=== PATIENT | female | born 1945 | race Caucasian/White ===

== ENCOUNTER 2023-04-03 03:55 | Inpatient (IN) | payer MEDICARE ==
[~2023-04-03] VITALS: Ht 152.4 cm; Wt 59.0 kg
[2023-04-03] MEDS ORDERED: cefTRIAXone 1GM/50ML D5W 50 ML IV ONE ×2 (08:55→11:30)
[2023-04-03] MEDS ORDERED: POTASSIUM CHL 20MEQ/100ML 100 ML IV ONE ×3 (10:02→13:30)
[2023-04-03 10:30] VITALS: PULSE 83; RESP 15; O2SAT 96
[2023-04-03] MEDS ORDERED: DOCUSATE SOD 100 MG CAP PO PRN (12:00)
[2023-04-03] MEDS: SODIUM CHLORIDE 0.9% 1,000 ML IV SCH ×2 (13:07→22:01)
[2023-04-03 14:29] LABS: Alanine Aminotransferase < 9 U/L (7-40); Albumin 3.5 g/dL (3.2-4.8); Alkaline Phosphatase 80 U/L (46-116); Anion Gap 7 (5-15); Aspartate Aminotransferase 12 U/L (13-40); BUN/Creatinine Ratio 14.6 (10.0-20.0); Bilirubin, Total 1.1 mg/dL (0.2-1.0); Blood Urea Nitrogen 14 mg/dL (9-23); Calcium 9.3 mg/dL (8.5-10.1); Carbon Dioxide 29 mmol/L (20-30); Chloride 101 mmol/L (98-107); Glucose 95 mg/dL (74-106); Sodium 137 mmol/L (136-145); Total Protein 5.6 g/dL (5.7-8.2)
[2023-04-03 14:30] LABS: Potassium 2.6 mmol/L (3.5-5.1)
[2023-04-03 15:38] LABS: Basophils # (auto) 0 10 ^3/uL (0-0.2); Basophils % (auto) 0.3 % (0.0-2.0); Eosinophils # (auto) 0.2 10 ^3/uL (0-0.8); Eosinophils % (auto) 1.8 % (0.0-7.0); Hematocrit 31.8 % (36.0-46.0); Hemoglobin 10.7 g/dL (12.2-16.2); Lymphocytes # (auto) 1.3 10 ^3/uL (0.4-5.4); Lymphocytes % (auto) 10.4 % (10.0-50.0); Mean Corpuscular Hemoglobin 32.8 pg (28.0-32.0); Mean Corpuscular Hgb Conc. 33.8 g/dL (32.0-36.0); Mean Corpuscular Volume 97.1 fL (80.0-100.0); Monocytes # (auto) 0.5 10 ^3/uL (0-1.3); Monocytes % (auto) 4.2 % (0.0-12.0); Neutrophils # (auto) 10.7 10 ^3/uL (1.6-8.6); Neutrophils % (auto) 83.3 % (37.0-80.0); Red Blood Cells 3.27 10^6/uL (4.0-5.20); Red Cell Distribution Width 15.2 % (11.8-14.3); White Blood Cell 12.8 10^3/uL (4.4-10.8)
[2023-04-03] MEDS ORDERED: POTASSIUM EFFERVESENT TAB 25 MEQ PO ONE (17:30)
[2023-04-03 19:30] VITALS: PULSE 73; RESP 17; O2SAT 95
[2023-04-03] MEDS: MORPHINE SULFATE INJ 2 MG/ml SYRG IV PRN (21:13)
[2023-04-04] VITALS (7 sets, daily range): BP systolic 144–167; BP diastolic 64–81; PULSE 76–97; RESP 16–20; TEMP 98.1–98.9; O2SAT 94–97
[2023-04-04] MEDS: HYDROcodone-ACET 5/325MG TAB PO PRN ×4 (01:14→21:17)
[2023-04-04] MEDS: MORPHINE SULFATE INJ 2 MG/ml SYRG IV PRN ×3 (05:23→19:42)
[2023-04-04 06:29] LABS: Hematocrit 29.9 % (36.0-46.0); Hemoglobin 10.4 g/dL (12.2-16.2); Mean Corpuscular Hemoglobin 33.9 pg (28.0-32.0); Mean Corpuscular Hgb Conc. 34.8 g/dL (32.0-36.0); Mean Corpuscular Volume 97.5 fL (80.0-100.0); Red Blood Cells 3.06 10^6/uL (4.0-5.20); Red Cell Distribution Width 15.3 % (11.8-14.3); White Blood Cell 9.4 10^3/uL (4.4-10.8)
[2023-04-04 06:33] LABS: Albumin 3.2 g/dL (3.2-4.8); Alkaline Phosphatase 74 U/L (46-116); Anion Gap 12 (5-15); Aspartate Aminotransferase 13 U/L (13-40); BUN/Creatinine Ratio 9.2 (10.0-20.0); Bilirubin, Total 0.8 mg/dL (0.2-1.0); Blood Urea Nitrogen 6 mg/dL (9-23); Calcium 8.8 mg/dL (8.5-10.1); Carbon Dioxide 24 mmol/L (20-30); Chloride 106 mmol/L (98-107); Glucose 78 mg/dL (74-106); Sodium 142 mmol/L (136-145); Total Protein 5.2 g/dL (5.7-8.2)
[2023-04-04 06:40] LABS: Basophils % (manual) 0 (0.0-2.0); Blast Cells 0; Myelocytes % 0; Promyelocytes % 0; Reactive Lymphocytes 0
[2023-04-04 06:42] LABS: Alanine Aminotransferase < 9 U/L (7-40)
[2023-04-04 06:43] LABS: Potassium 2.8 mmol/L (3.5-5.1)
[2023-04-04] MEDS ORDERED: POTASSIUM CHL 20 Meq TABLET PO ONE (07:00)
[2023-04-04] MEDS ORDERED: POTASSIUM CHL 20MEQ/100ML 100 ML IV ONE (07:00)
[2023-04-04] MEDS: SODIUM CHLORIDE 0.9% 1,000 ML IV SCH ×2 (08:10→18:50)
[2023-04-04 08:27] LABS: Band Neutrophils % (manual) 3; Eosinophils % (manual) 8 (0-7); Lymphocytes % (manual) 9 (10.0-50.0); Metamyelocytes % 2; Monocytes % (manual) 3 (0-12); Platelet Estimate Adequate
[2023-04-04] MEDS: ENOXAPARIN SOD 40 MG/0.4 ML SYRINGE SC SCH (11:04)
[2023-04-04 11:54] LABS: Albumin 3.4 g/dL (3.2-4.8); Alkaline Phosphatase 77 U/L (46-116); Anion Gap 10 (5-15); Aspartate Aminotransferase 15 U/L (13-40); BUN/Creatinine Ratio 9.5 (10.0-20.0); Blood Urea Nitrogen 6 mg/dL (9-23); Calcium 8.7 mg/dL (8.7-10.4); Carbon Dioxide 26 mmol/L (20-30); Chloride 104 mmol/L (98-107); Glucose 94 mg/dL (74-106); Potassium 3.3 mmol/L (3.5-5.1); Sodium 140 mmol/L (136-145)
[2023-04-04 11:55] LABS: Bilirubin, Total 0.7 mg/dL (0.2-1.0); Total Protein 5.2 g/dL (5.7-8.2)
[2023-04-04 12:09] LABS: Alanine Aminotransferase < 9 U/L (7-40)
[2023-04-04] MEDS ORDERED: levoFLOXacin 500MG 100 ML IV ONE (12:45)
[2023-04-04] MEDS: VANCOMYCIN HCL 125MG/5ML ORAL SOL PO SCH ×2 (18:51→21:18)
[2023-04-04] MEDS ORDERED: LEVO25TA6 PO (19:22)
[2023-04-04] MEDS ORDERED: DIPH2.5T73 PO (19:22)
[2023-04-04] MEDS ORDERED: CYAN-17 PO (19:22)
[2023-04-04] MEDS ORDERED: HYDR-4798 PO (19:22)
[2023-04-04] MEDS ORDERED: MESA10003 PR (19:22)
[2023-04-04] MEDS: POTASSIUM CHL 20 Meq TABLET PO SCH (21:16)
[2023-04-04] MEDS: metroNIDAZOLE 500MG/100ML 100 ML IV SCH (21:17)
[2023-04-05] MEDS: SODIUM CHLORIDE 0.9% 1,000 ML IV SCH ×3 (04:24→23:48)
[2023-04-05] MEDS: HYDROcodone-ACET 5/325MG TAB PO PRN (04:27)
[2023-04-05 05:00] VITALS: BP 142/80; PULSE 92; RESP 19; TEMP 97.9; O2SAT 95
[2023-04-05] MEDS: metroNIDAZOLE 500MG/100ML 100 ML IV SCH ×3 (05:13→21:59)
[2023-04-05] MEDS: VANCOMYCIN HCL 125MG/5ML ORAL SOL PO SCH ×4 (05:14→21:51)
[2023-04-05 08:00] VITALS: PULSE 90; PULSE 94; RESP 18; O2SAT 94
[2023-04-05 09:00] VITALS: BP 179/86; PULSE 97; RESP 20; TEMP 98.3; O2SAT 94
[2023-04-05] MEDS ORDERED: levoFLOXacin 500MG 100 ML IV SCH (10:00)
[2023-04-05] MEDS: ENOXAPARIN SOD 40 MG/0.4 ML SYRINGE SC SCH (10:14)
[2023-04-05] MEDS: POTASSIUM CHL 20 Meq TABLET PO SCH (10:14)
[2023-04-05] MEDS: ONDANSETRON HCL 4 MG/2 ML VIAL IV PRN ×2 (10:15→20:00)
[2023-04-05] MEDS: MORPHINE SULFATE INJ 2 MG/ml SYRG IV PRN ×2 (10:16→20:01)
[2023-04-05] MEDS ORDERED: CLINIMIX PER PHARMACY 0 ML IV SCH (10:45)
[2023-04-05] MEDS: MESALAMINE 400mg Delayed Release Cap PO SCH ×2 (11:45→21:51)
[2023-04-05] MEDS: LEVOTHYROXINE SODIUM 25 MCG TAB PO SCH (11:45)
[2023-04-05] MEDS: InsuLIN REG 1unit/0.01ml Soln (100units/ml) SC SCH ×3 (12:00→23:49)
[2023-04-05] MEDS ORDERED: HYDROcodone-ACET 10/325MG TAB PO SCH (12:00)
[2023-04-05] MEDS ORDERED: DEXTROSE (50%) 50ML SYRG IV SCH (12:00)
[2023-04-05 12:04] LABS: Anion Gap 7 (5-15); Carbon Dioxide 29 mmol/L (20-30); Chloride 102 mmol/L (98-107); Potassium 3.1 mmol/L (3.5-5.1); Sodium 138 mmol/L (136-145)
[2023-04-05 12:05] LABS: Calcium 8.8 mg/dL (8.5-10.1)
[2023-04-05 12:09] LABS: GFR African American 140 mL/min; GFR Non-African American 115 mL/min
[2023-04-05 12:10] LABS: Glucose 110 mg/dL (74-106)
[2023-04-05 12:11] LABS: Albumin 3.5 g/dL (3.2-4.8)
[2023-04-05 12:12] LABS: BUN/Creatinine Ratio 9.3 (10.0-20.0); Blood Urea Nitrogen < 5 mg/dL (9-23); Phosphorus 1.8 mg/dL (2.4-5.1)
[2023-04-05 12:34] LABS: INR 1.23 (0.9-1.15); Partial Thromboplastin Time 37.9 SEC (24.5-34.5); Prothrombin Time 12.7 sec (9.3-11.8)
[2023-04-05] MEDS: ACCU-CHEK COMFORT CURVE STRIP VI SCH ×3 (14:10→23:49)
[2023-04-05] MEDS: MAGNESIUM SULFATE 1GM/100ML 100 ML IV SCH ×2 (14:11→15:50)
[2023-04-05] MEDS ORDERED: POTASSIUM PHOSPHATE 44 MEQ in D5W 5% 250 ML IV ONE (16:00)
[2023-04-05 17:10] VITALS: BP 133/95; PULSE 100; RESP 20; TEMP 98.7; O2SAT 97
[2023-04-05 20:00] VITALS: PULSE 102; RESP 18; O2SAT 94
[2023-04-05] MEDS: AMINO ACID INFUSION IN D10W 1,000 ML IV NR (20:00)
[2023-04-05 22:00] VITALS: BP 153/59; PULSE 105; RESP 16; TEMP 98.5; O2SAT 95
[2023-04-05] MEDS ORDERED: POTASSIUM CHL 10% (20 MEQ/15ML) 15ml ORAL SOLN PO SCH (22:30)
[2023-04-05] MEDS ORDERED: MELATONIN 5 MG TAB PO ONE (23:45)
[2023-04-06] VITALS (8 sets, daily range): BP systolic 141–167; BP diastolic 74–84; PULSE 91–102; RESP 14–16; TEMP 98–98.6; O2SAT 91–96
[2023-04-06] MEDS: ONDANSETRON HCL 4 MG/2 ML VIAL IV PRN (04:05)
[2023-04-06] MEDS: MORPHINE SULFATE INJ 2 MG/ml SYRG IV PRN (04:06)
[2023-04-06] MEDS: ACCU-CHEK COMFORT CURVE STRIP VI SCH ×3 (05:49→16:59)
[2023-04-06] MEDS: InsuLIN REG 1unit/0.01ml Soln (100units/ml) SC SCH ×3 (05:49→18:00)
[2023-04-06] MEDS: metroNIDAZOLE 500MG/100ML 100 ML IV SCH ×3 (06:29→20:44)
[2023-04-06] MEDS: VANCOMYCIN HCL 125MG/5ML ORAL SOL PO SCH ×4 (06:29→20:57)
[2023-04-06] MEDS: LEVOTHYROXINE SODIUM 25 MCG TAB PO SCH (06:29)
[2023-04-06 06:38] LABS: Alkaline Phosphatase 88 U/L (46-116); Anion Gap 7 (5-15); Carbon Dioxide 30 mmol/L (20-30); Chloride 101 mmol/L (98-107); Glucose 114 mg/dL (74-106); Magnesium 1.6 mg/dL (1.6-2.6); Sodium 138 mmol/L (136-145)
[2023-04-06 06:39] LABS: Albumin 3.5 g/dL (3.2-4.8); Aspartate Aminotransferase 14 U/L (13-40); Bilirubin, Total 0.6 mg/dL (0.2-1.0); Phosphorus 1.9 mg/dL (2.4-5.1); Total Protein 5.5 g/dL (5.7-8.2)
[2023-04-06 06:53] LABS: BUN/Creatinine Ratio 8.9 (10.0-20.0); Blood Urea Nitrogen < 5 mg/dL (9-23)
[2023-04-06 06:54] LABS: Alanine Aminotransferase < 9 U/L (7-40)
[2023-04-06 06:55] LABS: Potassium 2.8 mmol/L (3.5-5.1)
[2023-04-06] MEDS ORDERED: LEVOTHYROXINE SODIUM 25 MCG TAB PO SCH (07:00)
[2023-04-06] MEDS: MESALAMINE 400mg Delayed Release Cap PO SCH ×2 (10:27→20:45)
[2023-04-06] MEDS: FLORASTOR (S. BOULARDII) 250 MG CAP PO SCH (10:27)
[2023-04-06] MEDS: levoFLOXacin 250MG 50 ML IV SCH (10:27)
[2023-04-06] MEDS: ENOXAPARIN SOD 40 MG/0.4 ML SYRINGE SC SCH (10:27)
[2023-04-06] MEDS: SODIUM CHLORIDE 0.9% 1,000 ML IV SCH ×2 (11:57→20:00)
[2023-04-06] MEDS: POTASSIUM CHL 20MEQ/100ML 100 ML IV SCH ×3 (12:02→17:03)
[2023-04-06] MEDS: HYDROcodone-ACET 5/325MG TAB PO PRN ×2 (12:56→22:39)
[2023-04-06] MEDS ORDERED: LORazepam 0.5 MG TAB PO SCH (14:00)
[2023-04-06] MEDS ORDERED: LIDOCAINE 1% (LOCAL ANESTH.) PF 5ml SDV ID ONE (14:45)
[2023-04-06] MEDS ORDERED: MAGNESIUM SULFATE 1GM/100ML 100 ML IV ONE (16:00)
[2023-04-06] MEDS ORDERED: POTASSIUM PHOSP 22MEQ(15MMOLE) in NS 100 ML IV ONE (17:00)
[2023-04-06] MEDS: AMINO ACID INFUSION IN D10W 1,000 ML IV NR (20:43)
[2023-04-06] MEDS: LORazepam 0.5 MG TAB PO SCH (20:44)
[2023-04-06] MEDS: MELATONIN 5 MG TAB PO SCH (20:45)
[2023-04-06] MEDS: SODIUM CHLOR 0.9% PF (SALINE LOCK) 10ML VIAL/SYR IV SCH (20:56)
[2023-04-07] VITALS (8 sets, daily range): BP systolic 130–155; BP diastolic 71–85; PULSE 81–100; RESP 15–19; TEMP 97.4–98.3; O2SAT 94–98
[2023-04-07] MEDS: ACCU-CHEK COMFORT CURVE STRIP VI SCH ×5 (00:49→23:29)
[2023-04-07] MEDS: InsuLIN REG 1unit/0.01ml Soln (100units/ml) SC SCH ×5 (00:49→23:28)
[2023-04-07] MEDS: LEVOTHYROXINE SODIUM 25 MCG TAB PO SCH (05:47)
[2023-04-07] MEDS: metroNIDAZOLE 500MG/100ML 100 ML IV SCH ×3 (05:47→22:06)
[2023-04-07] MEDS: VANCOMYCIN HCL 125MG/5ML ORAL SOL PO SCH ×4 (05:48→22:08)
[2023-04-07] MEDS: LORazepam 0.5 MG TAB PO SCH (05:48)
[2023-04-07] MEDS: SODIUM CHLORIDE 0.9% 1,000 ML IV SCH ×2 (06:04→16:00)
[2023-04-07] MEDS: MORPHINE SULFATE INJ 2 MG/ml SYRG IV PRN ×3 (06:45→20:39)
[2023-04-07 06:47] LABS: Chloride 108 mmol/L (98-107); Potassium 3.6 mmol/L (3.5-5.1); Sodium 141 mmol/L (136-145)
[2023-04-07 06:48] LABS: Anion Gap 6 (5-15); Carbon Dioxide 27 mmol/L (20-30)
[2023-04-07 06:53] LABS: GFR African American 156 mL/min; GFR Non-African American 129 mL/min; Glucose 115 mg/dL (74-106)
[2023-04-07 06:54] LABS: Magnesium 1.7 mg/dL (1.6-2.6)
[2023-04-07 06:55] LABS: Albumin 3.2 g/dL (3.2-4.8); Phosphorus 1.8 mg/dL (2.4-5.1)
[2023-04-07 07:05] LABS: BUN/Creatinine Ratio 10.2 (10.0-20.0); Blood Urea Nitrogen < 5 mg/dL (9-23)
[2023-04-07] MEDS: POTASSIUM EFFERVESENT TAB 25 MEQ PO SCH (10:39)
[2023-04-07] MEDS: levoFLOXacin 250MG 50 ML IV SCH (10:40)
[2023-04-07] MEDS: CHOLESTYRAMINE 4 GM POWDER GT SCH (10:40)
[2023-04-07] MEDS: ENOXAPARIN SOD 40 MG/0.4 ML SYRINGE SC SCH (10:40)
[2023-04-07] MEDS: MESALAMINE 400mg Delayed Release Cap PO SCH ×2 (10:40→22:07)
[2023-04-07] MEDS: FLORASTOR (S. BOULARDII) 250 MG CAP PO SCH (10:40)
[2023-04-07] MEDS: SODIUM CHLOR 0.9% PF (SALINE LOCK) 10ML VIAL/SYR IV SCH ×2 (10:41→22:07)
[2023-04-07] MEDS ORDERED: POTASSIUM PHOSPHATE 44 MEQ in D5W 5% 250 ML IV ONE (11:00)
[2023-04-07] MEDS: HYDROcodone-ACET 5/325MG TAB PO PRN (12:41)
[2023-04-07] MEDS ORDERED: METO25TA5 PO (18:37)
[2023-04-07] MEDS ORDERED: ENAL1TAB42 PO (18:37)
[2023-04-07] MEDS ORDERED: BUDE9TAB2 PO (18:37)
[2023-04-07] MEDS: AMINO ACID INFUSION IN D10W 1,000 ML IV NR (20:13)
[2023-04-07] MEDS ORDERED: LORazepam 0.5 MG TAB PO SCH (22:00)
[2023-04-07] MEDS: MELATONIN 5 MG TAB PO SCH (22:07)
[2023-04-08] MEDS: HYDROcodone-ACET 5/325MG TAB PO PRN ×2 (02:52→12:19)
[2023-04-08 05:00] VITALS: BP 142/77; PULSE 91; RESP 15; TEMP 98.9; O2SAT 96
[2023-04-08] MEDS: InsuLIN REG 1unit/0.01ml Soln (100units/ml) SC SCH ×3 (05:18→18:00)
[2023-04-08] MEDS: ACCU-CHEK COMFORT CURVE STRIP VI SCH ×3 (05:18→18:00)
[2023-04-08] MEDS: SODIUM CHLORIDE 0.9% 1,000 ML IV SCH (05:34)
[2023-04-08] MEDS: metroNIDAZOLE 500MG/100ML 100 ML IV SCH ×2 (05:34→14:22)
[2023-04-08] MEDS: VANCOMYCIN HCL 125MG/5ML ORAL SOL PO SCH ×3 (05:36→18:19)
[2023-04-08] MEDS: MORPHINE SULFATE INJ 2 MG/ml SYRG IV PRN (05:36)
[2023-04-08] MEDS: LEVOTHYROXINE SODIUM 25 MCG TAB PO SCH (05:37)
[2023-04-08 06:03] LABS: Chloride 107 mmol/L (98-107); Potassium 4.2 mmol/L (3.5-5.1); Sodium 139 mmol/L (136-145)
[2023-04-08 06:04] LABS: Anion Gap 5 (5-15); Calcium 9.1 mg/dL (8.7-10.4); Carbon Dioxide 27 mmol/L (20-30)
[2023-04-08 06:09] LABS: Albumin 3.2 g/dL (3.2-4.8); GFR African American 137 mL/min; GFR Non-African American 113 mL/min; Glucose 111 mg/dL (74-106)
[2023-04-08 06:10] LABS: Magnesium 1.5 mg/dL (1.6-2.6)
[2023-04-08 06:11] LABS: Phosphorus 2.4 mg/dL (2.4-5.1)
[2023-04-08 06:35] LABS: BUN/Creatinine Ratio 9.1 (10.0-20.0); Blood Urea Nitrogen < 5 mg/dL (9-23)
[2023-04-08 08:00] VITALS: PULSE 90
[2023-04-08 08:05] VITALS: BP 106/65; PULSE 90; RESP 18; TEMP 98; O2SAT 95
[2023-04-08] MEDS: SODIUM CHLOR 0.9% PF (SALINE LOCK) 10ML VIAL/SYR IV SCH (10:00)
[2023-04-08 12:05] VITALS: BP 150/79; PULSE 90; RESP 19; TEMP 98.5; O2SAT 94
[2023-04-08] MEDS: levoFLOXacin 250MG 50 ML IV SCH (12:17)
[2023-04-08] MEDS: FLORASTOR (S. BOULARDII) 250 MG CAP PO SCH (12:18)
[2023-04-08] MEDS: MESALAMINE 400mg Delayed Release Cap PO SCH (12:18)
[2023-04-08] MEDS: POTASSIUM EFFERVESENT TAB 25 MEQ PO SCH (12:19)
[2023-04-08] MEDS: ENOXAPARIN SOD 40 MG/0.4 ML SYRINGE SC SCH (12:19)
[2023-04-08] MEDS: CHOLESTYRAMINE 4 GM POWDER GT SCH (12:59)
[2023-04-08] MEDS ORDERED: MAGNESIUM SULFATE 1GM/100ML 100 ML IV ONE (13:30)
[2023-04-08] MEDS ORDERED: SODIUM PHOSPHATES 20 MEQ in SODIUM CHL 0.9% 100 ML IV ONE (14:30)
[2023-04-08 16:00] VITALS: BP 145/75; PULSE 104; RESP 18; TEMP 98; O2SAT 94
== END 2023-04-08 20:50 | DRG 871 ==
LOC: ER 03:55 → TELE 11:56 → TELE-WESTW 23:46
PROVIDERS: ADMIT Nurse Practitioner Family; ATTEND Family Medicine
PROC: 02HV33Z Insertion of Infusion Device into Superior Vena Cava, Percutaneous Approach (ICD-10-PCS; principal; 2023-04-06)
PROC: B548ZZA Ultrasonography of Superior Vena Cava, Guidance (ICD-10-PCS; 2023-04-06)
DX: A41.9 Sepsis, unspecified organism (principal); G93.41 Metabolic encephalopathy; N39.0 Urinary tract infection, site not specified; D62 Acute posthemorrhagic anemia; E44.0 Moderate protein-calorie malnutrition; A04.72 Enterocolitis due to Clostridium difficile, not specified as recurrent; E86.0 Dehydration; E87.5 Hyperkalemia; K58.9 Irritable bowel syndrome, unspecified; K46.9 Unspecified abdominal hernia without obstruction or gangrene; I10 Essential (primary) hypertension; E03.9 Hypothyroidism, unspecified; E87.6 Hypokalemia; F41.9 Anxiety disorder, unspecified; M19.90 Unspecified osteoarthritis, unspecified site; Z96.659 Presence of unspecified artificial knee joint; G47.00 Insomnia, unspecified; Z82.3 Family history of stroke; Z82.49 Family history of ischemic heart disease and other diseases of the circulatory system; Z88.0 Allergy status to penicillin; Z68.25 Body mass index [BMI] 25.0-25.9, adult; F51.05 Insomnia due to other mental disorder
CPT/HCPCS: 36415; 36569; 71045; 74176; 80053; 80069; 82270; 82962; 83605; 83735; 83880; 84100; 84132; 84484; 85007; 85025; 85027; 85610; 85730; 87040; 87081; 87493; 93005; 96361; 96365; 96375; G0378; J0696; J1815; J1956; J2405; J3480; J3490; J7060